=== PATIENT | female | born 1985 | race Caucasian/White ===

== ENCOUNTER 2022-09-19 18:10 | Emergency (ER) | payer SELFPAY ==
[2022-09-19 18:32] VITALS: BP 145/69; PULSE 105; RESP 16; TEMP 37; O2SAT 97; BMI 43.9
--- NOTE | 2022-09-19 18:36 | XRR_ITS ---
PROCEDURE INFORMATION: Exam: XR Left Hand Exam date and time: 09/19/2022 6:48 PM Age: 37 years old Clinical indication: Injury or trauma; Other: Dog bite; Hand; Left TECHNIQUE: Imaging protocol: Radiologic exam of the left hand. Views: 3 or more views. COMPARISON: No relevant prior studies available. FINDINGS: Bones/joints: No acute fracture. No dislocation. Normal bone mineralization. No joint effusion. Joint spaces are maintained. Soft tissues: Soft tissue emphysema adjacent to the proximal 2nd metacarpal on the left hand. No radiopaque foreign body. XR/XR hand LT min 3V* [id number] IMPRESSION: 1. No acute fracture of the left hand. Followup imaging recommended in 7-14 days if clinical concern for fracture persists. 2. Soft tissue emphysema adjacent to the proximal 2nd metacarpal on the left hand.
--- NOTE | 2022-09-19 18:36 | W.ED.ANIMALB ---
HPI - Animal Bite General: Chief Complaint: Animal Bite Stated Complaint: Dog bite Time Seen by Provider: 09/19/22 18:35 History of Present Illness: 37-year-old female comes in today for complaints of injury to the left hand. On exam patient has a puncture wound to the thenar aspect of the palm of the left hand. Patient moves extremity well. Patient reports last tetanus was last year. Patient denies any allergies. It was a patient's pet that bit her to the hand. Patient reports immunizations for Pap is up-to-date. Associated symptoms: Deny fever(s) Review of Systems Const: Denies: fever(s) Card: Denies: chest pain Resp: Denies: dyspnea GI: Denies: vomiting Musc: Reports: extremity pain Skin/Breast: Reports: skin tenderness and new lesions Physical Exam Const: COMMON NORMALS: alert HENMT: COMMON NORMALS: atraumatic HEAD & SCALP: atraumatic Neck/C-Spine: COMMON NORMALS: full ROM Resp: COMMON NORMALS: normal respiratory effort Cardio: COMMON NORMALS: regular rate RATE: regular rate Back/Pelvis: COMMON NORMALS: thoracic and lumbar spine normal to inspection Extremity: LEFT UPPER EXTREMITY: Yes hand & digits (Palm left hand thenar aspect puncture wound) Left hand and digits: Yes inspection, Yes palpation, Yes ROM and Yes neurovascular exam Neuro: SENSORIUM/ORIENTATION: Yes alert Skin: TRAUMA: puncture (Left hand palm) Course Vital Signs: Vital signs: Vital Signs Temperature 98.6 F 09/19/22 18:32 Pulse Rate 105 H 09/19/22 18:32 Respiratory Rate 16 09/19/22 18:32 Blood Pressure 145/69 09/19/22 18:32 Pulse Oximetry 97 09/19/22 18:32 Oxygen Delivery Me thod Room Air 09/19/22 18:32 MDM - Animal Bite Medical Decision Making 37-year-old female comes in today for complaints of injury to the palmar left hand. On exam patient appears nontoxic. Patient has some tenderness to the palm of the left hand with a puncture wound. Distal pulses and sensation are intact. Skin is warm and dry. Vital signs are normal. Differential diagnosis includes but not limited to foreign body, fracture, puncture wound, animal bite. X-ray was unremarkable. Wound was cleaned and dressed with antibiotic ointment and covered with nonstick dressing. Patient was started on Augmentin for prophylaxis treatment of animal bite. Patient reports understanding of care plan and need for follow-up or return to the ER. Discharge Plan Discharge Patient Disposition: Home Clinical Impression: Dog bite Qualifiers: Encounter type: initial encounter Qualified Code(s): W54.0XXA - Bitten by dog, initial encounter Condition: Stable Prescriptions: New amoxicillin-pot clavulanate 875-125 mg tablet 1 tab PO BID Qty: 14 0RF Discharge Orders: Discharge ED (Routine); Ordered 09/19/22 Ordered By: Gato Diaz Discharge Diet: As Directed Discharge Activity: Increase activity as tolerated Patient Instructions: Animal Bite (ED) Activity Restrictions/Additional Instructions: Clean wound with soap and water twice a day. Apply antibiotic ointment of choice. Use acetaminophen and ibuprofen for pain. Take amoxicillin with potassium clavulanate 1 tablet twice a day for 7 days. Watch site for infection such as increasing redness, severe pain, swelling, and streaking up the arm. Follow-up with primary care as needed. Return to ED for new concerns or worsening symptoms. Coding Level of Care Code ED Manufacturing Teacher for Misbah Garcia
[2022-09-19] MEDS: amoxicillin-clav 875-125 mg Tablet 1 TAB PO (19:12)
[2022-09-19] MEDS: bacitracin ointment Pkt 1 EACH TOPICAL (19:12)
--- NOTE | 2022-09-21 15:12 | DCPLANNER ---
fraud manager called patient due to no primary care physician - patient's declines at this time.
== END 2022-09-19 19:15 | disposition home or self-care (01) ==
PROVIDERS: Emergency Provider Nurse Practitioner Family
DX: S61.452A Open bite of left hand, initial encounter (principal); W54.0XXA Bitten by dog, initial encounter
CPT/HCPCS: 73130; 99283

== ENCOUNTER 2023-10-19 09:42 | Outpatient (CLI) | payer MEDICAID, SELFPAY ==
--- NOTE | 2023-10-19 09:46 | US_ITS ---
WS: [id number] ULTRASOUND SOFT TISSUES LEFT mid abdomen. HISTORY: SOFT TISSUE MASS COMPARISON: None available. TECHNIQUE: 2-D and color Doppler imaging is submitted. Patient directed ultrasound evaluation to the mid LEFT abdomen. There is a partially encapsulated and slightly hyperechoic mass without increased vascularity. This mass measures 2.0 x 3.5 x 1.7 cm. No i ncreased vascularity. US/US soft tissue/extremity [id number] IMPRESSION: Palpable area along the mid LEFT abdominal wall corresponds to a lipoma.
== END 2023-10-19 09:43 | disposition home or self-care (01) ==
LOC: RAD 09:42
PROVIDERS: Visit Provider Family Medicine
DX: M79.9 Soft tissue disorder, unspecified (principal); R93.5 Abnormal findings on diagnostic imaging of other abdominal regions, including retroperitoneum
CPT/HCPCS: 76882